=== PATIENT | female | born 1965 ===

== ENCOUNTER 2023-12-21 15:44 | Outpatient (CLI) | payer OTHER, SELFPAY ==
--- NOTE | 2023-12-21 | ECHO_ITS ---
Patient Info Name: Blessing Lyman Age: 58 years : 1965 Gender: Female Ht: 70 in Wt: 275 lbs BSA: 2.54 m2 HR: 71 bpm BP: 159 / 89 mmHg Technical Quality: Good Exam Date: 12/21/2023 4:17 PM Exam Location: Echo Lab Patient Status: Outpatient Admit Date: 12/21/2023 Staff Ordering Physician: LEONILA HARRIS MD Director Of Perioperative Services: David Bay RDCS Attending Provider: LEONILA HARRIS MD Referring Physician: [employer]; Exam Type: CA echo doppler color flow Study Info Indications I25.10 - Atherosclerotic heart disease of [place] coronary artery without angina pectoris Complete two-dimensional, color flow and Doppler transthoracic echocardiogram is performed. Summary 1. Complete two-dimensional, color flow and Doppler transthoracic echocardiogram is performed. 2. Left ventricular chamber dimension is normal. 3. Left ventricular systolic function is normal, estimated at 60-65%. 4. The left ventricular diastolic function is grade I diastolic dysfunction. 5. E/e' 12 is mildly elevated. 6. There is mild aortic valve sclerosis. 7. The mitral valve has moderately calcified leaflets. 8. No pulmonary hypertension, estimated pulmonary arterial systolic pressure is 10 mmHg. Left Ventricle E/e' 12 is mildly elevated. Left ventricular chamber dimension is normal. Left ventricular systolic function is normal, estimated at 60-65%. The left ventricular diastolic function is grade I diastolic dysfunction. Right Ventricle Right ventricular systolic function is normal and with normal TAPSE 2.2 cm. Right ventricular chamber dimension is normal. Left Atria Left atrial chamber dimension is normal. Right Atria Right atrial chamber dimension is normal. Aortic Valve The aortic valve is trileaflet. There is mild aortic valve sclerosis. There is no aortic valve stenosis. There is no aortic valve regurgitation. Pulmonic Valve There is no pulmonic regurgitation. Mitral Valve The mitral valve has moderately calcified leaflets. There is no mitral valve stenosis. There is no mitral valve regurgitation. Tricuspid Valve There is no tricuspid valve regurgitation. No pulmonary hypertension, estimated pulmonary arterial systolic pressure is 10 mmHg. Pericardium/Pleural There is no pericardial effusion. Inferior Vena Cava Normal inferior vena cava with >50% collapse upon inspiration consistent with normal right atrial pressure, 5 mmHg. Aorta The aortic root size at the sinus of Valsalva is normal. Left Ventricular Outflow Tract Name Value Normal LVOT 2D LVOT Diameter 1.9 cm LVOT Doppler LVOT Peak Gradient 5 mmHg LVOT Mean Gradient 2 mmHg LVOT VTI 23 cm LVOT VTI/AV VTI Ratio 0.9 LVOT Stroke Volume 69 ml LVOT CO 4.9 l/min LVOT CI 1.9 l/min/m2 Pulmonic Valve Name Value Normal PV Doppler
== END 2023-12-21 15:45 | disposition home or self-care (01) ==
LOC: ANHCARD 15:53
DX: I25.10 Atherosclerotic heart disease of native coronary artery without angina pectoris (principal); I51.89 Other ill-defined heart diseases; I35.8 Other nonrheumatic aortic valve disorders; I34.81 Nonrheumatic mitral (valve) annulus calcification
CPT/HCPCS: 93306